=== PATIENT | male | born 1950 | race African-American/Black ===

== ENCOUNTER 2016-09-09 10:20 | Emergency (ER) | payer MEDICARE, OTHER ==
[~2016-09-09] VITALS: Ht 177.8 cm; Wt 111.1 kg
[~2016-09-09 10:20] MED LIST: ASPI-630 PO; CETI10TA22 PO; DOCU-109 PO; HUM100VI5 SQ; HYDR-971 PO; METF-620 PO; MULT1TAB52 PO; QUIN20TA7 PO; RANI150T2 PO
[2016-09-09 10:58] LABS: BASO # 0.1 x10^3/uL (0.0-0.2); BASO % 1 % (0-3); EOS % 2 % (0-3); HEMATOCRIT 40.2 % (39.0-53.0); HEMOGLOBIN 14.2 g/dL (13.0-17.5); LYMPH # 1.4 x10^3/uL (1.0-4.8); LYMPH % 15 % (24-48); MEAN CORPUSCULAR HEMOGLOBIN 31 pg (25-35); MEAN CORPUSCULAR HGB CONC 35 g/dL (31-37); MEAN CORPUSCULAR VOLUME 88 fL (79-100); MONO % 7 % (0-9); NEUT % 75 % (31-73); PLATELET COUNT 187 x10^3/uL (140-400); RED BLOOD COUNT 4.58 x10^6/uL (4.30-5.70); RED CELL DISTRIBUTION WIDTH 13.7 % (11.5-14.5); WHITE BLOOD COUNT 9.3 x10^3/uL (4.0-11.0)
[2016-09-09 11:12] LABS: CALCIUM 8.4 mg/dL (8.5-10.1); CREATININE 1.5 mg/dL (0.7-1.3); GFR 56.3; POTASSIUM 4.8 mmol/L (3.5-5.1)
[2016-09-09] MEDS ORDERED: HYDROmorphone 2 MG/ML VIAL IV PRN (11:15)
[2016-09-09 11:16] LABS: ALBUMIN 4.2 g/dL (3.4-5.0); DIRECT BILIRUBIN 0.1 mg/dL (0.0-0.2); TOTAL BILIRUBIN 0.6 mg/dL (0.2-1.0); TOTAL PROTEIN 7.2 g/dL (6.4-8.2)
--- NOTE | 2016-09-09 11:22 | EKG ---
[facility] [address] [place] [address] Test Date: 2016-09-09 Test Time: 10:38:14 Pat Name: CRISTIANE MCCORMICK Department: Room: Gender: M [employer]: : 1950 Requested By: SUMAN GARIBAY Order Number: [id number] Reading MD: Measurements Intervals [place] Rate: 90 P: 33 OK: 170 QRS: 31 QRSD: 82 T: 33 QT: 328 QTc: 405 Interpretive Statements SINUS RHYTHM QRS(T) CONTOUR ABNORMALITY CONSIDER ANTEROLATERAL MYOCARDIAL DAMAGE POSSIBLY ABNORMAL ECG RI6.01 No previous ECG available for comparison
[2016-09-09] MEDS ORDERED: ONDANSETRON PF 4 MG/2 ML VIAL. IV ONE (11:30)
[2016-09-09] MEDS ORDERED: IV NORMAL SALINE 500ML BAG 500 ML IV ONE (11:30)
[2016-09-09] MEDS ORDERED: IOHEXOL 300 MG/ML 75 ML VIAL IV ONE (12:00)
[2016-09-09 12:27] LABS: BILIRUBIN,URINE NEGATIVE (NEG); GLUCOSE,URINE NEGATIVE (NEG); NITRITE,URINE NEGATIVE (NEG); PROTEIN,URINE NEGATIVE (NEG-TRACE); UROBILINOGEN,URINE 0.2 mg/dL (0.2 mg/dL)
--- NOTE | 2016-09-09 12:27 | PHYS DOC ---
Past Medical History Past Medical History: Diabetes-Type II, Hypertension, Other Additional Past Medical Histor: SICKLE CELL TRAIT,SLEEP APNEA Past Surgical History: Other Additional Past Surgical Histo: CARPAL TUNNEL RELEASE,BACK Alcohol Use: None Drug Use: None Adult General Chief Complaint Chief Complaint: ABDOMINAL PAIN HPI HPI 66-year-old gentleman presenting to the emergency department today with right upper quadrant abdominal pain for the past 4 days. It is intermittent sharp nonradiating and without alleviating factors. He denies any fevers at home nausea or vomiting. He denies syncope or confusion. Review of systems is negative for fevers chills vomiting diarrhea or constipation. He denies polyuria or dysuria. All other review of systems is negative unless otherwise noted in history of present illness. ED course: 66-year-old gentleman presenting to the emergency department with right upper quadrant abdominal pain. IV established, IV fluids nausea and pain medication given. Patient was afebrile with a normal heart rate in our emergency department with mild chronic hypertension. Pertinent physical exam findings showed a soft nontender abdomen. Nontender gallbladder. Soft nontender abdomen without rebound tenderness or guarding present. Negative McBurneys point. Negative Szymanski sign. No ecchymosis present. On reexamination the patient is feeling better. Blood work obtained along with CT the abdomen pelvis. glucose mildy elevated, ckd/ small elevation in Cr similar to previous. otherwise bloodwork is unremarkable. Pt was feeling better on reexam. repeat abd exam is nontender. The patient was then discharged home in stable condition to follow up with their primary care physician over the next 2-3 days. They were to return if their symptoms worsened or if they were concerned for any reason. [id number] discharge instructions and return precautions were given. Patient's questions were answered to their satisfaction. Patient is comfortable plan. Review of Systems Review of Systems SEE ABOVE. Current Medications Current Medications Current Medications Medications (Trade) Dose Ordered Sig/Matthew Start Time Stop Time Status Last Admin Dose Admin Hydromorphone HCl (Dilaudid) 0.5 mg PRN Q30MIN PRN 09/09/16 11:15 09/09/16 11:43 0.5 MG Iohexol (Omnipaque 300 Mg/ml) 60 ml 1X ONCE 09/09/16 12:00 09/09/16 12:01 DC 09/09/16 12:13 60 ML Ondansetron HCl (Zofran) 4 mg 1X ONCE 09/09/16 11:30 09/09/16 11:31 DC 09/09/16 11:43 4 MG Sodium Chloride 500 ml @ 500 mls/hr 1X ONCE 09/09/16 11:30 09/09/16 12:29 DC 09/09/16 11:43 500 MLS/HR Allergies Allergies Allergies Coded Allergies Type Severity Reaction Last Updated Verified No Known Drug Allergies 02/06/14 No Physical Exam Physical Exam SEE ABOVE Constitutional: Well developed, well nourished, no acute distress, non-toxic appearance. HENT: Normocephalic, atraumatic, bilateral external ears normal, oropharynx moist, no oral exudates, nose normal. [] Eyes: PERRLA, EOMI, conjunctiva normal, no discharge. [] Neck: Normal range of motion, no tenderness, supple, no stridor. Cardiovascular:Heart rate regular rhythm, no murmur [] Lungs & Thorax: Bilateral breath sounds clear to auscultation [] Abdomen: SEE ABOVE Skin: Warm, dry, no erythema, no rash. [] Back: No tenderness, no CVA tenderness. Extremities: No tenderness, no cyanosis, no clubbing, ROM intact, no edema. [] Neurologic: Alert and oriented X 3, normal motor function, normal sensory function, no focal deficits noted. Psychologic: Affect normal, judgement normal, mood normal. [] Current Patient Data Vital Signs Vital Signs Date Time Temp Pulse Resp B/P (MAP) Pulse Ox O2 Delivery O2 Flow Rate FiO2 09/09/16 12:24 87 24 148/86 (106) 98 Room Air 09/09/16 10:26 98.9 98.9 Lab Values Laboratory Tests Test 09/09/16 10:35 09/09/16 12:20 White Blood Count 9.3 x10^3/uL (4.0-11.0) Red Blood Count 4.58 x10^6/uL (4.30-5.70) Hemoglobin 14.2 g/dL (13.0-17.5) Hematocrit 40.2 % (39.0-53.0) Mean Corpuscular Volume 88 fL (79-100) Mean Corpuscular Hemoglobin 31 pg (25-35) Mean Corpuscular Hemoglobin Concent 35 g/dL (31-37) Red Cell Distribution Width 13.7 % (11.5-14.5) Platelet Count 187 x10^3/uL (140-400) Neutrophils (%) (Auto) 75 % (31-73) H Lymphocytes (%) (Auto) 15 % (24-48) L Monocytes (%) (Auto) 7 % (0-9) Eosinophils (%) (Auto) 2 % (0-3) Basophils (%) (Auto) 1 % (0-3) Neutrophils # (Auto) 7.0 x10^3uL (1.8-7.7) Lymphocytes # (Auto) 1.4 x10^3/uL (1.0-4.8) Monocytes # (Auto) 0.7 x10^3/uL (0.0-1.1) Eosinophils # (Auto) 0.2 x10^3/uL (0.0-0.7) Basophils # (Auto) 0.1 x10^3/uL (0.0-0.2) Sodium Level 145 mmol/L (136-145) Potassium Level 4.8 mmol/L (3.5-5.1) Chloride Level 108 mmol/L (98-107) H Carbon Dioxide Level 28 mmol/L (21-32) Anion Gap 9 (6-14) Blood Urea Nitrogen 22 mg/dL (8-26) Creatinine 1.5 mg/dL (0.7-1.3) H Estimated GFR (Cockcroft-Gault) 56.3 Glucose Level 263 mg/dL (70-99) H Lactic Acid Level 1.9 mmol/L (0.4-2.0) Calcium Level 8.4 mg/dL (8.5-10.1) L Total Bilirubin 0.6 mg/dL (0.2-1.0) Direct Bilirubin 0.1 mg/dL (0.0-0.2) Aspartate Amino Transferase (AST) 32 U/L (15-37) Alanine Aminotransferase (ALT) 33 U/L (16-63) Alkaline Phosphatase 100 U/L (46-116) Troponin I Quantitative < 0.017 ng/mL (0.000-0.055) Total Protein 7.2 g/dL (6.4-8.2) Albumin 4.2 g/dL (3.4-5.0) Lipase 253 U/L (73-393) Urine Collection Type Unknown Urine Color Yellow Urine Clarity Clear Urine pH 8.0 Urine Specific Rochert 1.010 Urine Protein Negative mg/dL (NEG-TRACE) Urine Glucose (UA) Negative mg/dL (NEG) Urine Ketones (Stick) Negative mg/dL (NEG) Urine Blood Negative (NEG) Urine Nitrite Negative (NEG) Urine Bilirubin Negative (NEG) Urine Urobilinogen Dipstick 0.2 mg/dL (0.2 mg/dL) Urine Leukocyte Esterase Negative (NEG) Urine RBC 0 /HPF (0-2) Urine WBC 1-4 /HPF (0-4) Urine Squamous Epithelial Cells Few /LPF Urine Bacteria 0 /HPF (0-FEW) Laboratory Tests 09/09/16 10:35 Laboratory Tests 09/09/16 10:35 EKG EKG [] Radiology/Procedures Radiology/Procedures [] Course & Med Decision Making Course & Med Decision Making Pertinent Labs and Imaging studies reviewed. (See chart for details) [] Dragon Disclaimer Dragon Disclaimer This electronic medical record was generated, in whole or in part, using a voice recognition dictation system. Departure Departure Impression: Primary Impression: Abdominal pain Disposition: HOME, SELF-CARE Condition: STABLE Referrals: SLOAN MORIN MD (PCP) Patient Instructions: Abdominal Pain Additional Instructions: Thank you for allowing us to participate in your care today. Followup with your primary care physician in 3 days if your symptoms do not improve. Call your Primary Doctor tomorrow and inform them of your visit today. If you do not have a primary care provider you can ask for a list of our primary care providers. Return to the emergency department you have any new or concerning findings. This should be evaluated by the primary care physician and any necessary consulting services for continued management within a few days after discharge. Return to emergency room if you have any new or concerning symptoms including but not limited to fever, chills, nausea, vomiting, intractable pain, any new rashes, chest pain, shortness of air, uncontrolled bleeding, difficulty breathing, and/or vision loss. You may have been prescribed medication that can change in your level of thinking and ability to operate machinery. These medications include hydrocodone and Ativan. Also, Benadryl has been known to do this as well. Be sure to check with your pharmacist and ask if the medications you've prescribed can affect your level of consciousness. I recommend not operating heavy machinery or driving while on medication such as these. Scripts Hydrocodone Bit/Acetaminophen (HYDROCODONE-APAP 5-325 ) 1 Each Tablet 1 TAB PO PRN Q6HRS Y for PAIN, #10 TAB 0 Refills Be careful as this medication may cause you to be drowsy or tired. Do not drive on this medication. Prov: SUMAN GARIBAY MD 09/09/16 Ondansetron (ZOFRAN ODT) 4 Mg Tab.rapdis 1 TAB SL PRN Q8HRS Y for NAUSEA, #6 TAB Prov: SUMAN GARIBAY MD 09/09/16 SUMAN GARIBAY MD Sep 09, 2016 12:27
[2016-09-09 12:37] LABS: BACTERIA,URINE 0 /HPF (0-FEW); RBC,URINE 0 /HPF (0-2); SQUAMOUS EPITHELIAL CELL,UR FEW /LPF
--- NOTE | 2016-09-09 12:50 | RAD ---
Indication right-sided abdominal pain for 4 days. Axial images through the abdomen and pelvis were obtained. 60 cc of Omnipaque 300 was administered intravenously. No prior imaging is available. The lung bases are clear. There is some slight stranding in the subcutaneous soft tissues of the right lower abdomen and upper pelvis. The etiology is unclear. This may represent bruising. Inflammation is not excluded. There is a small hiatus hernia. The liver and spleen appear unremarkable. The gallbladder appears grossly normal. No pancreatic abnormality is seen. No adrenal or renal anomalies are seen. No acute finding is apparent in the abdomen. In the pelvis the appendix is seen in the right lower quadrant and appears unremarkable. The prostate is slightly enlarged. An acute finding in the pelvis is not seen. There are degenerative changes in the lumbar spine. There are some mild periaortic adenopathy and there are a few nodes in the mesentery. These are of uncertain but doubtful clinical significance. IMPRESSION: No acute finding seen in the abdomen or pelvis. Small hiatus hernia. Mild periaortic adenopathy and mesenteric adenopathy probably incidental. Minimally enlarged prostate Chronic musculoskeletal changes
[2016-09-09 13:00] VITALS: BP 123/74
[2016-09-09] MEDS ORDERED: HYDR-2758 PO (13:09)
[2016-09-09] MEDS ORDERED: ONDA4TAB10 SL (13:09)
== END 2016-09-09 13:20 | disposition home or self-care (01) ==
LOC: ER 10:20
DX: R10.11 Right upper quadrant pain (principal); E11.9 Type 2 diabetes mellitus without complications; I10 Essential (primary) hypertension; G47.30 Sleep apnea, unspecified; N40.0 Benign prostatic hyperplasia without lower urinary tract symptoms; Z86.2 Personal history of diseases of the blood and blood-forming organs and certain disorders involving the immune mechanism
CPT/HCPCS: 36415; 74177; 80048; 80076; 81001; 83605; 83690; 84484; 85027; 93005; 96361; 96374; 96375; 99285; J1170; J2405; J7040; Q9967